=== PATIENT | female | born 1930 | race Caucasian/White ===

== ENCOUNTER → 2018-04-20 | Day surgery (SDC) | payer MEDICARE ==
[2018-04-19 15:25] LABS: BASOPHILS # (AUTO) 0.1 (0.0-0.1); EOSINOPHILS # (AUTO) 0.2 (0.0-0.4); EOSINOPHILS % 2.3 % (0.0-6.0); HEMATOCRIT 32.4 % (34.2-44.1); LYMPHOCYTES # (AUTO) 1.9 (1.0-3.2); LYMPHOCYTES % 27.5 % (18.0-39.1); MEAN CORPUSCULAR HEMOGLOBIN 23.6 pg (28-32); MEAN CORPUSCULAR HGB CONC 30.9 g/dL (31-35); MEAN CORPUSCULAR VOLUME 76.6 fL (81-99); MONOCYTES # (AUTO) 0.8 (0.2-0.8); MONOCYTES % 11.3 % (4.4-11.3); NEUTROPHILS # (AUTO) 3.9 (2.1-6.9); NEUTROPHILS % 57.8 % (38.7-80.0); PLATELET COUNT 231 x10e3/uL (140-360); RED BLOOD COUNT 4.23 x10e6/uL (3.6-5.1); RED CELL DISTRIBUTION WIDTH 16.2 % (11.7-14.4)
[2018-04-19 15:36] LABS: INR 2.05; PROTHROMBIN TIME 21.7 seconds (11.9-14.5)
[2018-04-19 15:46] LABS: ALANINE AMINOTRANSFERASE 12 IU/L (0-55); ALBUMIN 3.5 g/dL (3.5-5.0); ALKALINE PHOSPHATASE 83 IU/L (40-150); ANION GAP 12.7 mmol/L (8-16); BLOOD UREA NITROGEN 11 mg/dL (7-26); BUN/CREATININE RATIO 14 (6-25); CALCIUM 9.6 mg/dL (8.4-10.2); CARBON DIOXIDE 24 mmol/L (22-29); CHLORIDE 99 mmol/L (98-107); CHOL/HDL RATIO 2.1 (3.0-3.6); CHOLESTEROL 126 MD/DL (0-199); CREATININE, SERUM 0.77 mg/dL (0.57-1.11); EST GLOMERULAR FILTRATION RATE > 60 ML/MIN (60-); GLUCOSE 93 mg/dL (74-118); HDL CHOLESTEROL 61 MG/DL (40-60); LDL CHOLESTEROL 49 MG/DL (60-130); POTASSIUM 3.7 mmol/L (3.5-5.1); SODIUM 132 mmol/L (136-145); TRIGLYCERIDES 79 MG/DL (0-149)
[2018-04-20] VITALS (14 sets, daily range): BP systolic 143–196; BP diastolic 60–91
[~2018-04-20] VITALS: Ht 160 cm; Wt 68.0 kg
[~2018-04-20] MED LIST: ATORVASTATIN CA10 MG PO; CLONIDINE HCL 0.1 MG TAB ONE; DIOVAN HCT 1601 EACH PO; FENTANYL CITRATE/PF 100MCG/2 ML INJ ONE; HEPARIN SOD (PORCINE) 1000 UNIT/ML 30ML ONE; HEPARIN SOD/SOD CHLORIDE 2,000 ML ONE; IOPAMIDOL 370 MG/ML 200 ML INFUS..BTL INJ ONE; LIDOCAINE HCL 2% LOCAL 20 ML VIAL ONE; METOPROLOL TART25 MG PO; MIDAZOLAM HCL 2 MG/2 ML VIAL ONE; NITROGLYCERIN/D5W 200 MCG/ML 250 ML ONE; SODIUM CHLORIDE 0.9% 1000ML 1,000 ML ONE; VERAPAMIL HCL 2.5 MG/ML 2 ML VIAL ONE; WARFARIN SODIUM3 MG PO
--- NOTE | 2018-04-20 16:52 | Operative Report ---
DATE OF PROCEDURE: April 20, 2018 INDICATIONS: Coronary artery disease. Severe aortic valve stenosis. PROCEDURES PERFORMED: 1. Left heart catheterization. 2. Selective coronary angiography. COMPLICATIONS: None. RECOMMENDATIONS: Transfemoral aortic valve replacement. Access obtained in the right femoral artery. A 5-Uzbek sheath was placed. Diagnostic coronary angiogram revealed mild disease in the left main, heavily calcified left anterior descending artery mid 60% to 70% stenosis, heavily calcified vessel diagonal proximal 60% to 70%. Circumflex was a dominant vessel obtuse marginal 60% to 70%. Ostial lesion mid left posterior descending artery 50% stenosis. Right coronary artery was nondominant with mid 50% stenosis. Moderate to severe coronary artery disease without any discrete lesion that required intervention. Patient is cleared for transfemoral aortic valve replacement. Right groin sheath removed under manual pressure. Patient discharged home same day. Job#: [id number] WILVER
== END | disposition home or self-care (01) ==
LOC: CATH LAB 13:20
PROVIDERS: ATTEND Internal Medicine Interventional Cardiology
DX: I25.118 Atherosclerotic heart disease of native coronary artery with other forms of angina pectoris (principal); I35.0 Nonrheumatic aortic (valve) stenosis; I48.0 Paroxysmal atrial fibrillation; Z01.812 Encounter for preprocedural laboratory examination; Z79.01 Long term (current) use of anticoagulants; Z86.73 Personal history of transient ischemic attack (TIA), and cerebral infarction without residual deficits
CPT/HCPCS: 36415; 80053; 80061; 85025; 85610; 93458; C1760; C1887; J1644; J2001; J2250; J7030; Q9967; 36140; 77002

== ENCOUNTER → 2018-07-30 | Outpatient (CLI) | payer MEDICARE ==
[~2018-07-30] MED LIST changes: -CLONIDINE HCL 0.1 MG TAB ONE; -FENTANYL CITRATE/PF 100MCG/2 ML INJ ONE; -HEPARIN SOD (PORCINE) 1000 UNIT/ML 30ML ONE; -HEPARIN SOD/SOD CHLORIDE 2,000 ML ONE; -IOPAMIDOL 370 MG/ML 200 ML INFUS..BTL INJ ONE; -LIDOCAINE HCL 2% LOCAL 20 ML VIAL ONE; -MIDAZOLAM HCL 2 MG/2 ML VIAL ONE; -NITROGLYCERIN/D5W 200 MCG/ML 250 ML ONE; -SODIUM CHLORIDE 0.9% 1000ML 1,000 ML ONE; -VERAPAMIL HCL 2.5 MG/ML 2 ML VIAL ONE
--- NOTE | 2018-07-30 16:26 | Diagnostic Imaging Report ---
EXAMINATION: CHEST 2 VIEWS INDICATION: \[id number] \S\[id number] \S\SOB COMPARISON: None FINDINGS: PA and lateral views TUBES and LINES: None. LUNGS: Lungs are well inflated. Bibasilar atelectasis. Bilateral central pulmonary vascular congestion. No lobar consolidations. PLEURA: Small bilateral pleural effusions, right greater than left. HEART AND MEDIASTINUM: Mildly prominent left ventricle. Status post transcutaneous aortic valve replacement. Moderate calcifications of the aortic arch. BONES AND SOFT TISSUES: Degenerative changes of the thoracic spine. Soft tissues are unremarkable. UPPER ABDOMEN: No free air under the diaphragm. IMPRESSION: Bilateral central pulmonary vascular congestion and small bilateral pleural effusions. Signed by: Dr. Ida Lyle M.D. on 07/30/2018 4:23 PM
== END ==
LOC: RAD 15:08
PROVIDERS: ATTEND Internal Medicine Interventional Cardiology
DX: R06.02 Shortness of breath (principal); J18.9 Pneumonia, unspecified organism
CPT/HCPCS: 71046

== ENCOUNTER 2018-08-23 14:02 | Emergency (ER) | payer MEDICARE ==
[~2018-08-23] VITALS: Ht 160 cm; Wt 68.0 kg
[2018-08-23] MEDS ORDERED: DILTIAZEM HCL 5 MG/ML 5 ML VIAL IV STA (14:48)
[2018-08-23] MEDS ORDERED: DILTIAZEM HCL 100 ML IV ONE (15:00)
[2018-08-23] MEDS ORDERED: SODIUM CHLORIDE 0.9% 500ML 500 ML IV ONE (15:00)
--- NOTE | 2018-08-23 15:16 | Diagnostic Imaging Report ---
Examination: Single AP view of the chest. COMPARISON: 07/30/2018 INDICATION: Shortness of breath DISCUSSION: The lungs are well-inflated. No focal consolidation or pneumothorax. Unchanged mild prominence of the central pulmonary vasculature. Decrease in size of persistent trace bilateral pleural effusions. Stable cardiomediastinal contour with aortic valvular prosthesis, tortuosity and atherosclerotic calcification of the thoracic aorta. No acute osseous abnormality. IMPRESSION: Interval improvement in pulmonary venous congestion and now trace bilateral pleural effusions relative to 07/30/2018. Signed by: Dr. Braeden Tinajero M.D. on 08/23/2018 3:13 PM
[2018-08-23] MEDS: DILTIAZEM HCL IV SOLN 125 MG in SODIUM CHLORIDE 0.9% 100 ML IV SCH (15:58)
[2018-08-23 16:05] LABS: BASOPHILS # (AUTO) 0.1 (0.0-0.1); BASOPHILS % 0.9 % (0.0-1.0); EOSINOPHILS # (AUTO) 0.2 (0.0-0.4); EOSINOPHILS % 2.3 % (0.0-6.0); HEMATOCRIT 34.7 % (34.2-44.1); HEMOGLOBIN 10.5 g/dL (12.0-16.0); LYMPHOCYTES # (AUTO) 1.6 (1.0-3.2); MEAN CORPUSCULAR HEMOGLOBIN 24.5 pg (28-32); MEAN CORPUSCULAR HGB CONC 30.3 g/dL (31-35); MEAN CORPUSCULAR VOLUME 80.9 fL (81-99); MONOCYTES # (AUTO) 0.8 (0.2-0.8); MONOCYTES % 12.2 % (4.4-11.3); NEUTROPHILS # (AUTO) 3.9 (2.1-6.9); NEUTROPHILS % 59.3 % (38.7-80.0); PLATELET COUNT 196 x10e3/uL (140-360); RED BLOOD COUNT 4.29 x10e6/uL (3.6-5.1)
[2018-08-23 16:31] LABS: ALANINE AMINOTRANSFERASE 9 IU/L (0-55); ALBUMIN 3.2 g/dL (3.5-5.0); ALBUMIN/GLOBULIN RATIO 0.9 (0.8-2.0); ALKALINE PHOSPHATASE 86 IU/L (40-150); BLOOD UREA NITROGEN 13 mg/dL (7-26); BUN/CREATININE RATIO 16 (6-25); CALCIUM 9.4 mg/dL (8.4-10.2); CREATININE, SERUM 0.82 mg/dL (0.57-1.11); EST GLOMERULAR FILTRATION RATE > 60 ML/MIN (60-); GLUCOSE 99 mg/dL (74-118); MAGNESIUM 1.4 MG/DL (1.3-2.1)
[2018-08-23 16:43] LABS: CHLORIDE 105 mmol/L (98-107); POTASSIUM 3.5 mmol/L (3.5-5.1); SODIUM 141 mmol/L (136-145)
[2018-08-23] MEDS ORDERED: ONDANSETRON HCL INJ 2 MG/ML VIAL IV PRN (17:15)
[2018-08-23] MEDS ORDERED: SODIUM CHLORIDE FLUSH 10 ML SYR INJ PRN (17:15)
[2018-08-23 17:50] LABS: ANION GAP 15.5 mmol/L (8-16); CARBON DIOXIDE 24 mmol/L (22-29); THYROID STIMULATING HORMONE 0.347 uIU/mL (0.350-4.940)
[2018-08-23] MEDS ORDERED: FUROSEMIDE40 MG PO (17:59)
[2018-08-23] MEDS ORDERED: ASPIR 8181 MG PO (17:59)
[2018-08-23] MEDS ORDERED: POTASSIUM CHLO10 ME1 PO (17:59)
[2018-08-24] VITALS (10 sets, daily range): BP systolic 118–137; BP diastolic 61–94
[2018-08-24] MEDS: DILTIAZEM HCL 180 MG CAP ER PO SCH ×2 (01:23→10:14)
[2018-08-24 01:47] LABS: BASOPHILS # (AUTO) 0.1 (0.0-0.1); BASOPHILS % 0.9 % (0.0-1.0); EOSINOPHILS # (AUTO) 0.1 (0.0-0.4); EOSINOPHILS % 1.7 % (0.0-6.0); HEMATOCRIT 35.5 % (34.2-44.1); HEMOGLOBIN 10.7 g/dL (12.0-16.0); LYMPHOCYTES # (AUTO) 1.6 (1.0-3.2); MEAN CORPUSCULAR HEMOGLOBIN 24.8 pg (28-32); MEAN CORPUSCULAR HGB CONC 30.1 g/dL (31-35); MEAN CORPUSCULAR VOLUME 82.2 fL (81-99); MONOCYTES # (AUTO) 0.8 (0.2-0.8); MONOCYTES % 9.8 % (4.4-11.3); NEUTROPHILS # (AUTO) 5.6 (2.1-6.9); NEUTROPHILS % 68.4 % (38.7-80.0); PLATELET COUNT 207 x10e3/uL (140-360); RED BLOOD COUNT 4.32 x10e6/uL (3.6-5.1); RED CELL DISTRIBUTION WIDTH 15.9 % (11.7-14.4)
[2018-08-24 02:44] LABS: INR 2.08
[2018-08-24 02:45] LABS: PARTIAL THROMBOPLASTIN TIME 50.9 seconds (23.8-35.5)
[2018-08-24 03:45] LABS: ALANINE AMINOTRANSFERASE 10 IU/L (0-55); ALBUMIN 3.4 g/dL (3.5-5.0); ALBUMIN/GLOBULIN RATIO 0.9 (0.8-2.0); ALKALINE PHOSPHATASE 83 IU/L (40-150); BLOOD UREA NITROGEN 12 mg/dL (7-26); BUN/CREATININE RATIO 15 (6-25); CALCIUM 10.2 mg/dL (8.4-10.2); CHLORIDE 104 mmol/L (98-107); CHOL/HDL RATIO 2.2 (3.0-3.6); CHOLESTEROL 109 MD/DL (0-199); CREATININE, SERUM 0.82 mg/dL (0.57-1.11); EST GLOMERULAR FILTRATION RATE > 60 ML/MIN (60-); GLUCOSE 106 mg/dL (74-118); HDL CHOLESTEROL 49 MG/DL (40-60); LDL CHOLESTEROL 45 MG/DL (60-130); MAGNESIUM 1.8 MG/DL (1.3-2.1); PHOSPHORUS 2.7 MG/DL (2.3-4.7); POTASSIUM 3.5 mmol/L (3.5-5.1); SODIUM 139 mmol/L (136-145); TRIGLYCERIDES 77 MG/DL (0-149)
[2018-08-24 04:12] LABS: ANION GAP 10.5 mmol/L (8-16); CARBON DIOXIDE 28 mmol/L (22-32)
[2018-08-24 07:07] LABS: FREE THYROXINE INDEX 2.7479 (1.4-3.8); THYROID STIMULATING HORMONE 0.374 uIU/mL (0.350-4.940)
[2018-08-24] MEDS ORDERED: POTASSIUM CHLORIDE 10MEQ EA PO SCH (09:00)
[2018-08-24] MEDS ORDERED: METOPROLOL TARTRATE 25 MG TAB PO SCH (09:00)
[2018-08-24] MEDS ORDERED: ASPIRIN 81 MG CHEW TAB PO SCH (09:00)
[2018-08-24] MEDS ORDERED: FUROSEMIDE 40 MG TAB PO SCH (09:00)
[2018-08-24] MEDS: DILTIAZEM HCL IV SOLN 125 MG in SODIUM CHLORIDE 0.9% 100 ML IV SCH ×4 (09:20→11:30)
[2018-08-24] MEDS ORDERED: HALOPERIDOL LACTATE 5 MG/ML VIAL IV ONE (12:30)
--- NOTE | 2018-08-24 12:59 | Consultation ---
DATE OF CONSULTATION: August 24, 2018 CARDIOLOGY CONSULTATION REQUESTING PHYSICIAN: Dr. Hernandez REASON FOR CONSULTATION: Atrial fibrillation with rapid ventricular response. HISTORY OF PRESENT ILLNESS: This is an 88-year-old woman with a history of paroxysmal atrial fibrillation on warfarin therapy, severe aortic stenosis status post TAVR earlier this year, moderate coronary artery disease on cardiac catheterization, hypertension, hyperlipidemia, and prior CVA who presents with lightheadedness, dizziness and weakness. The patient was seen by home health yesterday. After noticing she was tachycardic to 148 beats per minute, she was instructed to present to [facility] for further evaluation. The patient endorses dizziness and weakness for approximately the last week but, otherwise, denies any chest pain, shortness of breath, palpitations, edema, orthopnea or PND. REVIEW OF SYSTEMS: Negative, except as per HPI. PAST MEDICAL HISTORY 1. Atrial fibrillation on Coumadin therapy. 2. Severe aortic stenosis status post TAVR earlier this year. 3. Moderate coronary artery disease on cardiac catheterization. 4. Hypertension. 5. Hyperlipidemia. 6. History of CVA. ALLERGIES: NO KNOWN DRUG ALLERGIES. MEDICATIONS: Please see EMR. SOCIAL HISTORY: No tobacco or alcohol. FAMILY HISTORY: Noncontributory to the current illness. PHYSICAL EXAMINATION VITAL SIGNS: Temperature 96.2 degrees, pulse 86, respiratory rate 18, blood pressure 134/70, oxygen saturation 97% on room air. GENERAL: Elderly woman in no acute distress. HEENT: Normocephalic and atraumatic. Pupils are equal. No scleral icterus. NECK: Supple. No thyromegaly or cervical lymphadenopathy. No carotid bruit. LUNGS: Clear to auscultation bilaterally. No wheezes or crackles. CARDIOVASCULAR: Irregularly irregular. Normal rate. Normal S1 and S2. ABDOMEN: Soft. Nontender. EXTREMITIES: No edema. NEURO: Nonfocal exam. LABS: INR 2.08. Sodium 139, potassium 3.5, chloride 104, CO2 28, BUN 12, creatinine 0.82. TSH 0.347. WBC 8.14, hemoglobin 10.7, hematocrit 35.5, platelets 207. Chest x-ray: Interval improvement in pulmonary venous congestion and now trace bilateral pleural effusions relative to 07/30/2018. EKG: Atrial fibrillation with rapid ventricular response, cannot rule out anterior infarct age undetermined. IMPRESSION 1. Atrial fibrillation with rapid ventricular response. 2. Severe aortic stenosis status post transcatheter aortic valve replacement. 3. Moderate coronary artery disease on cardiac catheterization. 4. Hypertension. 5. Hyperlipidemia. 6. History of cerebrovascular accident. RECOMMENDATIONS: Continue the patient on diltiazem drip. Wean as heart rate permits. We will resume the patient's home metoprolol and titrate up. Continue home cardiac medications otherwise. The patient's heart rate has been poorly controlled. She was recommended for AV node ablation with bi-V pacemaker implantation. Plan to transfer the patient to [facility] for this procedure given her poorly controlled symptomatic AFib. Thank you for this consult. We will continue to follow. Job#: [id number]
[2018-08-24] MEDS ORDERED: WARFARIN SOD 3 MG TAB PO SCH (17:00)
[2018-08-24] MEDS ORDERED: ATORVASTATIN 10 MG TAB PO SCH (21:00)
[2018-08-24] MEDS ORDERED: IPRATROPIUM BROMIDE 0.02% 2.5 ML NEB ONE (23:03)
[2018-08-24] MEDS ORDERED: ALBUTEROL SULF 0.083% NEB SOLN 3 ML NEB ONE (23:03)
--- OUTSIDE RECORDS SUMMARY | 2018-08-31 12:06 | XMS REPORT ---
Author Author [facility] Address Unknown Phone Unavailable Care Team Providers Care Auditing Coder Name Role Phone Vianey RICK Unavailable Unavailable NIALL FELIX Unavailable Unavailable Problems This patient has no known problems. Allergies, Adverse Reactions, Alerts This patient has no known allergies or adverse reactions. Medications This patient has no known medications. Results Test Description Test Time Test Comments Text Results Atomic Results Result Comments CHEST SINGLE (PORTABLE) 2018-08-23 15:10:00 [facility] [address] [place] [address] Patient Name: JEAN MONTALVO MR #: [id number] : 1930 Age/Sex: 88/F Req #: [id number] Adm Physician: Ordered by: CHRISTA RICK MD Report #: [id number] Location: ER Room/Bed: Procedure: [id number] DX/CHEST SINGLE (PORTABLE) Exam Date: 08/23/18 Exam Time: 1455 REPORT STATUS: Signed Examination: Single AP view of the chest. COMPARISON: 07/30/2018 INDICATION: Shortness of breath DISCUSSION: The lungs are well-inflated. No focal consolidation or pneumothorax. Unchanged mild prominence of the central pulmonary vasculature. Decrease in size of persistent trace bilateral pleural effusions. Stable cardiomediastinal contour with aortic valvular prosthesis, tortuosity and atherosclerotic calcification of the thoracic aorta. No acute osseous abnormality. IMPRESSION: Interval improvement in pulmonary venous congestion and now trace bilateral pleural effusions relative to 07/30/2018. Signed by: Dr. Sravanthi Juárez M.D. on 08/23/2018 3:13 PM Dictated By: SRAVANTHI JUÁREZ MD 12 Transcribed By: MARCOS on 08/23/181512 COPY TO: CHRISTA RICK MD CHEST 2 VIEWS 2018-07-30 16:20:00 [place] [id number] Patient Name: JEAN MONTALVO MR #: [id number] : 1930 Age/Sex: 88/F Req #: [id number] Adm Physician: Ordered by: NIALL FELIX MD Report #: [id number] Location: [facility] Room/Bed: Procedure: [id number] DX/CHEST 2 VIEWS Exam Date: 07/30/18 Exam Time: 1605 REPORT STATUS: Signed EXAMINATION: CHEST 2 VIEWS INDICATION: COMPARISON: None FINDINGS: PA and lateral views TUBES and LINES: None. LUNGS: Lungs are well inflated. Bibasilar atelectasis. Bilateral central pulmonary vascular congestion. No lobar consolidations. PLEURA: Small bilateral pleural effusions, right greater than left. HEART AND MEDIASTINUM: Mildly prominent left ventricle. Status post transcutaneous aortic valve replacement. Moderate calcifications of the aortic arch. BONES AND SOFT TISSUES: Degenerative changes of the thoracic spine. Soft tissues are unremarkable. UPPER ABDOMEN: No free air under the diaphragm. IMPRESSION: Bilateral central pulmonary vascular congestion and small bilateral pleural effusions. Signed by: Dr. Keyana Bazzi M.D. on 07/30/2018 4:23 PM Dictated By: KEYANA BAZZI MD 1625 Transcribed By: MARCOS on 07/30/18 1623 COPY TO: NIALL FELIX MD
--- OUTSIDE RECORDS SUMMARY | 2018-08-31 12:06 | XMS REPORT | Continuity of Care Document ---
Author Author [facility] Interface Address Unknown Phone Unavailable Problems Problem Status Onset Date Classification Date Reported Comments Source AFIB Active 08/24/2018 [facility] 4 WEEK F/U Active 07/21/2018 [facility] FOLLOW UP Active 07/12/2018 [facility] PREADMIT / TAVR / MAC / TTE Active 07/08/2018 [facility] CTA CHEST ABD PELVIS CT HEART W CON Active 06/14/2018 [facility] HEART VALVE SURGERY Active 11/16/2017 [facility] Aortic stenosis Active Problem 06/11/2018 [facility] CVA (<span ID="[id number]">Confirmed</span>) Active Problem 06/11/2018 [facility] Hypertension Active Problem 06/11/2018 [facility] Paroxysmal atrial fibrillation Active Problem 06/11/2018 [facility] NONRHEUMATIC AORTIC (VALVE) STENOSIS Active [facility] SHORTNESS OF BREATH Active [facility] ENCNTR FOR GENERAL ADULT MEDICAL EXAM W/ Active [facility] PAROXYSMAL ATRIAL FIBRILLATION Active [facility] Medications Medication Details Route Status Patient Instructions Ordering Provider Order Date Source warfarin 3 mg oral tablet 3 mg=1 tab, PO, Daily, # 90 tab, 0 Refill(s) Active 06/08/2018 [facility] atorvastatin 10 mg oral tablet 10 mg=1 tab, PO, Bedtime, # 90 tab, 3 Refill(s) Active 06/08/2018 [facility] Hydrochlorothiazide 12.5 MG / valsartan 160 MG Oral Tablet 1 tab, PO, Daily, # 90 tab, 1 Refill(s) Active 06/08/2018 [facility] metoprolol tartrate 25 mg oral tablet 12.5 mg=0.5 tab, PO, BID, # 60 tab, 0 Refill(s) Active 06/08/2018 [facility] Allergies, Adverse Reactions, Alerts Substance Category Reaction Severity Reaction type Status Date Reported Comments Source Immunizations Immunization Date Given Site Status Last Updated Comments Source Results Order Name Results Value Reference Range Date Interpretation Comments Source Abdomen/Pelvis CTA Abdomen/Pelvis CTA Patient Name: JEAN MONTALVO : 1930 Age: 88 years, Female MR: [id number] Study: Abdomen/Pelvis CTA 08/30/2018 6:17 PM CDT Examination: CTA abdomen and pelvis WITH contrast. Bilateral lower extremity runoff. Indication: Right groin hematoma. Clinical information: - Right groin Hematoma. Comparison: CTA chest abdomen pelvis 07/01/2018 TECHNIQUE: Sequential trans-axial images were obtained with a multi-detector helical CT after administration of iodinated contrast for CT angiography. The images were obtained precontrast and in the arterial phase. Coronal and sagittal reconstructions and were obtained, along with 3D post-processing and maximum intensity projection imaging for exam interpretation. IV contrast: 75 cc of Omnipaque Complications: None Radiation dose: Total exam DLP: 2700.1 mGy-cm CT imaging performed at this location utilizes radiation dose optimization techniques which include one or more of the following: -Automated exposure control -Adjustment of the mA and/or kV according to patient size -Use of iterative reconstruction technique FINDINGS: CTA ABDOMEN: ARTERIAL EVALUATION The abdominal aorta is normal. No aneurysmal dilation is present. No flow-limiting stenosis is present. Scattered nonflow-limiting atherosclerotic calcifications are noted. Bilateral renal arteries are widely patent including the intrarenal arterial branches. There is no CT evidence of renal artery stenosis. The celiac artery, superior mesenteric artery and inferior mesenteric artery origins are widely patent. LIMITED VENOUS EVALUATION: The mesenteric veins and portal vein are patent. The inferior vena cava and renal veins are unremarkable. CTA PELVIS: ARTERIAL EVALUATION: The distal infrarenal abdominal aorta and bifurcation are patent. No aneurysmal dilation is present. No flow-limiting stenosis is present. Scattered nonflow-limiting atherosclerotic calcifications are noted. The right common iliac, external iliac, and internal iliac arteries are patent. The left common iliac, external iliac, and internal iliac arteries are patent. The right common femoral, superficial femoral, profunda arteries are patent. Multiple surgical clips are present in the right groin. Partially visualized drainage catheter is present in the medial aspect of the right groin, series 5 image 183. No focal drainable fluid collection. Several adjacent foci of air and inflammatory changes within the right groin are noted. The left common femoral artery is patent. The visualized portions of the superficial femoral and profunda arteries are patent. GENERAL Lines/tubes: Partially visualized cardiac pacing leads are present in the right atrium and ventricle. Lower thorax: Metallic prosthesis is present in the region of the aortic valve. Coronary artery stents are present. Bilateral lower lobe compression atelectasis. Bilateral pleural effusions, right greater than left. No pneumothorax. Liver: Normal parenchyma. No focal mass. No hepatomegaly. The hepatic and portal veins are patent. Gallbladder: Multiple large gallstones are present in the gallbladder. Minimal distention of the gallbladder. Biliary tree: No intrahepatic duct dilation. No extrahepatic duct dilation. Spleen: No focal mass. No splenomegaly. Pancreas: Normal parenchymal enhancement. No focal mass. Normal pancreatic duct. No peripancreatic inflammatory changes. Kidneys: No obstructing calculi. No hydronephrosis. No solid enhancing mass. No cysts. No perinephric soft tissue inflammatory changes. The right renal pelvis is slightly extrarenal and prominent, unchanged since the previous examination, series 5 image 65. Adrenal glands: No adrenal nodules. Bladder: Normal urinary bladder. Cuadra catheter is present in the urinary bladder. Reproductive organs: 3.8 cm exophytic density with coarse calcifications adjacent to the uterus, series 5 image 134, likely represents a uterine fibroid. The uterus is otherwise normal. Normal ovaries. GI: No bowel wall thickening. No air-fluid levels. The stomach and small bowel are normal. Multiple diverticuli are present in the descending and sigmoid colon, without adjacent soft tissue inflammatory changes. The appendix is normal. A moderate amount of retained feces limits intraluminal evaluation of the colon. Peritoneum/retroperitoneum: No pneumoperitoneum. No ascites. No drainable fluid collection. The fascia of the abdominal wall is intact. Lymph nodes: No lymphadenopathy. Soft tissues: No focal abnormality. Bones: No acute osseous abnormality. Degenerative changes of the lumbar spine. IMPRESSION: 1. No hematoma is visualized in the right groin. A drainage catheter with minimal adjacent soft tissue inflammatory changes are present. No drainable fluid collection. 2. No acute arterial abnormality. 3. Cholelithiasis with minimally distended gallbladder. 4. Bilateral pleural effusions, right greater than left. 5. Exophytic uterine fibroid. SL: [id number] 08/30/2018 - - Read by: Gordo Casillas MD Dictated Date/time: 08/31/18 09:41 Electronically Signed by: Gordo Casillas MD 08/31/18 10:03 FINAL REPORT [facility] Chest 1 v for Placement DX Chest 1 v for Placement DX Clinical indication: Line Placement - Status post PPM/ICD Implantation Comparison: Chest 1 view 08/25/2018 TECHNIQUE: AP chest FINDINGS: Lines, tubes and hardware: There has been placement of a left subclavian approach single lead pacemaker with a right ventricular lead. An aortic valve replacement is present. A curvilinear wire fragment overlies the left neck. Lungs and pleura: Right perihilar and bilateral suprahilar airspace opacities are seen, mildly increased from the prior exam. No definite pleural effusion or pneumothorax. Heart and mediastinum: The cardiomediastinal silhouette is stable with a tortuous thoracic aorta demonstrating atherosclerotic calcification. Bones: No acute bony abnormality is identified. A healed right clavicle fracture is present. IMPRESSION: 1. A curvilinear wire fragment overlies the left neck. Please confirm that this opacity is external to the patient. Follow-up chest radiograph may be obtained if clinically indicated. 2. Interval placement of a left subclavian approach pacemaker with a right ventricular lead. 3. Bilateral perihilar and suprahilar airspace opacities, which could represent pulmonary edema, not significantly changed from prior. FABIO: KAY 08/30/2018 - - Read by: Meg Redding MD Dictated Date/time: 08/30/18 17:52 Electronically Signed by: Meg Redding MD 08/30/18 17:56 FINAL REPORT [facility] 1view DX Chest 1view DX Clinical Indication: - shortness of breath; Comparison: 07/09/2018 FINDINGS: AP chest radiographs shows normal lung volumes without interstitial or airspace opacities, pleural effusions or pneumothorax. The heart is mildly enlarged. The aorta is tortuous and atherosclerotic. There is mild pulmonary vascular congestion which has slightly worsened. The trachea is midline. There are no clinically significant osseous abnormalities noted. IMPRESSION: 1. Cardiomegaly with mild pulmonary vascular congestion . SL: MICHAEL 08/25/2018 - - Read by: Braden Ceballos MD Dictated Date/time: 08/25/18 18:50 Electronically Signed by: Braden Ceballos MD 08/25/18 18:51 FINAL REPORT [facility] 1view DX Chest 1view DX EXAM: XR CHEST 1 VIEW DATE: 07/09/2018 10:00 AM CDT INDICATION: Arrhythmias - Post HARJIT COMPARISON: 03/03/2018 at 4:38 PM. TECHNIQUE: AP chest. IMPRESSION: 1. Stable postsurgical changes following TAVR. 2. Stable enlarged cardiomediastinal silhouette. Atherosclerotic changes in the aorta. 3. Lung volumes remain low. Bilateral lower lung opacities are likely subsegmental atelectasis, though superimposed infection cannot be excluded. 4. Redemonstration of interstitial pulmonary edema, without unchanged from prior study. 07/09/2018 - - Read by: Liana Choudhury MD Dictated Date/time: 07/09/18 17:44 Electronically Signed by: Liana Choudhury MD 07/09/18 17:45 FINAL REPORT [facility] Chest/Abd/Pelvis TAVR CTA Chest/Abd/Pelvis TAVR CTA EXAM: CTA CHEST EXAM: CTA ABDOMEN AND PELVIS INDICATION: 88 years old Female with aortic stenosis. TECHNIQUE: Following the administration of intravenous contrast, 3 mm slices from the thoracic inlet through the pubic symphysis were obtained in arterial phase. Images are reviewed on 3D workstation. COMPARISON: None FINDINGS: Vascular Measurements: Ascending aorta: 33 mm x 32 mm Aortic arch: 25 mm x 25 mm Mid-descending thoracic aorta: 21 mm x 21 mm Aorta at diaphragm: 20 mm x 20 mm Aorta at celiac axis: 21 mm x 20 mm Aorta at superior mesenteric artery: 19 mm x 19 mm Mid-infrarenal aorta: 15 mm x 14 mm Right common iliac artery: 10 mm x 10 mm Right external iliac artery: 6 mm x 6 mm Right common femoral artery: 8 mm x 9 mm Left common iliac artery: 10 mm x 10 mm Left external iliac artery: 7 mm x 6 mm Left common femoral artery: 8 mm x 8 mm Calcific scores: Ascending aorta: 1 Aortic arch: 2 Descending thoracic aorta: 2 Aorta at diaphragm: 2 Suprarenal abdominal aorta: 3 Infrarenal abdominal aorta: 3 0 :none 1 :punctate calcifications 2 : <50% of vessel circumference is confluent calcification 3 : >50% of vessel circumference is confluent calcification Cardiovascular: The pulmonary arteries are well seen through the segmental level. No pulmonary thromboemboli are identified. Mild cardiomegaly. No pericardial effusion. Triple-vessel coronary present. Aortic stenosis is also noted. Lymph Nodes: No adenopathy by CT size criteria. Mediastinum: A large thyroid goiter is present with multiple hypodense nodules seen within the bilateral lobes. There is retrosternal extension of the thyroid gland. Lungs demonstrate diffuse groundglass opacities, nonspecific, could represent pulmonary edema in the right clinical setting. A small right pleural effusion is present. The liver, spleen, adrenals and pancreas are normal. An extrarenal pelvis is present within the right kidney. Kidneys are otherwise unremarkable. Calcified gallstones are noted within the neck of the gallbladder. There is no gallbladder wall thickening or pericolonic fat stranding to suggest acute cholecystitis. Evaluation of the stomach, small bowel, and colon are limited by lack of PO contrast. A small hiatal hernia is present. Diverticulosis is present throughout the rectosigmoid colon. A partially enhancing uterine fibroid is seen at the fundus of the uterus. Multilevel compression deformities are seen throughout the thoracolumbar spine. These are age-indeterminate. Please correlate with focal tenderness. IMPRESSION: 1. Refer to dedicated CT cardiac for cardiac findings. 2. No pulmonary thromboemboli identified. 3. Mild cardiomegaly. 4. Pulmonary edema. 5. Small right pleural effusion. 6. Triple-vessel coronary artery disease. 7. Small hiatal hernia. 8. Cholelithiasis without CT evidence of acute cholecystitis. 9. Diverticulosis without CT evidence of diverticulitis. 10. Partially enhancing uterine fibroid. 11. Goitrous thyroid with retrosternal extension. Recommend nonemergent thyroid ultrasound for further evaluation. I have reviewed these images and agree with the above findings. 07/01/2018 - - This report was dictated by a Logistics Management Specialist/Fellow. I have personally reviewed the images as well as the Resident's interpretation and agree with the findings. Read by: Cristofer Lopez MD Resident: Cristofer Lopez MD Dictated Date/time: 07/02/18 13:28 Electronically Signed by: Gene Rivera MD 07/02/18 15:16 FINAL REPORT [facility] Heart/coronary art TAVR CTA Heart/coronary art TAVR CTA EXAM: CTA HEART WITH CONTRAST DATE: 07/01/2018 8:19 AM CDT INDICATION: - Aortic Stenosis. TAVR candidate. COMPARISON: CTA of the same day TECHNIQUE: Contrast imaging was performed on a [employer] Aquilion [address] scanner utilizing a single breath hold, at 570 mA and 120 kVp. Retrospective ECG gating was performed, at a heart rate of 71-75 bpm. Images were reformatted at 0.5 mm intervals and sent to the [employer] workstation for interpretation of both systolic and diastolic phases. IV contrast: 65 mL of Omnipaque 350 contrast was delivered intravenously at 5 mL/sec followed by a 50 mL normal saline bolus chaser. DLP: 1707.4 mGy-cm STUDY QUALITY: Good FINDINGS: Aortic root landmarks (dimensions determined in systolic phases) Aortic valve: Trileaflet: asymmetricallycalcified; bulky leaflet: No; right/left/noncoronary Aortic annulus: 22 x 18 mm; average 20 mm; area 3.1 sq cm; circumference 63 mm Sino-tubular junction: 26 x 25 mm; average 25 mm Ao annulus to coronary height: left main: 14 mm; right: 15 mm Ao annulus to STJ length: 21 mm Sinuses of Valsalva: width 27 mm Ascending aorta width at 40 mm from annulus: 33 mm Descending thoracic aorta: width: 22 mm Coplanar TAVR angle: TURKISH 11 and CAUDAL 4 Coronary Arteries: This patient has a right dominant system, with normal origins of the coronary arteries. There are diffuse calcifications of the left anterior descending, right circumflex and left coronary arteries, which may be correlated with cardiac angiography. Basal septal hypertrophy: Yes Severe hypertrophy (1.5 cm wall thickness): Yes; 1.8 cm Intracardiac masses: No Other cardiac findings: Pacemaker: No Artificial valve: No; Location: N/A Intracardiac closure device: None Mild thinning out of the left ventricular apical segments showing some paradoxical motion with left ventricular contraction suggestive of small left apical aneurysm. Left ventricular function: Left ventricular ejection fraction: 74% Left ventricular end-diastolic volume: 92 cc Left ventricular end-systolic volume: 24 cc Left ventricular stroke volume: 68 cc Other noncardiac findings: Moderate hiatal hernia and calcified cholelithiasis can be further evaluated on the CTA of the chest, abdomen and pelvis. IMPRESSION: 1. Trileaflet symmetrically calcified aortic valve and with aortic annular measurements as described above. 2. Moderate to severe calcifications are seen along the 3 coronary arteries. The current study is not tailored for evaluation of coronary arteries. Please correlate with coronary catheter for further evaluation. 3. 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 4. Normal left ventricular function with left ventricular ejection fraction of 74%. 5. Moderate size hiatal hernia. Cholelithiasis. 07/01/2018 - - This report was dictated by a Logistics Management Specialist/Fellow. I have personally reviewed the images as well as the Resident's interpretation and agree with the findings. Read by: Adonis Nance MD Resident: Adonis Nance MD Dictated Date/time: 07/01/18 15:24 Electronically Signed by: Damaso Massey MD 07/04/18 21:19 FINAL REPORT [facility] CHEM PANEL eGFR 74 mL/min/1.73m2 06/08/2018 Result Comment: The eGFR is calculated using the CKD-EPI formula. In most young, healthy individuals the eGFR will be >90 mL/min/1.73m2. The eGFR declines with age. An eGFR of 60-89 may be normal in some populations, particularly the elderly, for whom the CKD-EPI formula has not been extensively validated. Use of the eGFR is not recommended in the following populations: Individuals with unstable creatinine concentrations, including patients and those with serious co-morbid conditions. Patients with extremes in muscle mass or diet. The data above are obtained from the National Kidney Disease Education Program (NKDEP) which additionally recommends that when the eGFR is used in patients with extremes of body mass index for purposes of drug dosing, the eGFR should be multiplied by the estimated BMI. [facility] CHEM PANEL Total Protein 7.2 g/dL 6.4 - 8.4 06/08/2018 [facility] CHEM PANEL CO2 27 meq/L 24 - 32 06/08/2018 [facility] CHEM PANEL Calcium Lvl 9.4 mg/dL 8.5 - 10.5 06/08/2018 [facility] CHEM PANEL Alk Phos 80 unit/L 39 - 136 06/08/2018 [facility] CHEM PANEL Bili Total 0.7 mg/dL 0.2 - 1.3 06/08/2018 [facility] CHEM PANEL BUN 10 mg/dL 7 - 06/08/2018 [facility] CHEM PANEL Creatinine Lvl 0.73 mg/dL 0.50 - 1.40 06/08/2018 [facility] CHEM PANEL Sodium Lvl 136 meq/L 135 - 145 06/08/2018 [facility] CHEM PANEL Potassium Lvl 4.7 meq/L 3.5 - 5.1 06/08/2018 [facility] CHEM PANEL Chloride Lvl 100 meq/L 95 - 109 06/08/2018 [facility] CHEM PANEL Glucose Lvl 101 mg/dL 70 - 99 06/08/2018 [facility] CHEM PANEL Albumin Lvl 3.7 g/dL 3.5 - 5.0 06/08/2018 [facility] CHEM PANEL ALT 21 unit/L 0 - 65 06/08/2018 [facility] CHEM PANEL AST 20 unit/L 0 - 37 06/08/2018 [facility] CHEM PANEL A/G Ratio 1.1 0.7 - 1.6 06/08/2018 [facility] CHEM PANEL B/C Ratio 14 6 - 25 06/08/2018 [facility] CHEM PANEL Globulin 3.5 g/dL 2.7 - 4.2 06/08/2018 [facility] CHEM PANEL AGAP 13.7 meq/L 10.0 - 20.0 06/08/2018 [facility] HEMATOLOGY MCH 24.1 pg 27.0 - 31.0 06/08/2018 [facility] HEMATOLOGY RDW 17.4 % 11.5 - 14.5 06/08/2018 [facility] HEMATOLOGY MCHC 31.9 g/dL 32.0 - 36.0 06/08/2018 [facility] HEMATOLOGY Hct 34.9 % 36.0 - 48.0 06/08/2018 [facility] HEMATOLOGY MCV 75.6 fL 80.0 - 98.0 06/08/2018 [facility] HEMATOLOGY RBC 4.61 M/CMM 4.20 - 5.40 06/08/2018 [facility] HEMATOLOGY Hgb 11.1 g/dL 12.0 - 16.0 06/08/2018 [facility] HEMATOLOGY MPV 8.8 fL 7.4 - 10.4 06/08/2018 [facility] HEMATOLOGY Platelet 227 K/CMM 133 - 450 06/08/2018 [facility] HEMATOLOGY WBC 6.9 K/CMM 3.7 - 10.4 06/08/2018 [facility] HEMATOLOGY Segs 67.8 % 45.0 - 75.0 06/08/2018 [facility] HEMATOLOGY Monocytes 8.3 % 2.0 - 12.0 06/08/2018 [facility] HEMATOLOGY Eosinophils 1.4 % 0.0 - 4.0 06/08/2018 [facility] HEMATOLOGY Lymphocytes 21.5 % 20.0 - 40.0 06/08/2018 [facility] HEMATOLOGY Basophils 1.0 % 0.0 - 1.0 06/08/2018 [facility] HEMATOLOGY Lymphocytes # 1.5 K/CMM 1.0 - 5.5 06/08/2018 [facility] HEMATOLOGY Segs-Bands # 4.7 K/CMM 1.5 - 8.1 06/08/2018 [facility] HEMATOLOGY Eosinophils # 0.1 K/CMM 0.0 - 0.5 06/08/2018 [facility] HEMATOLOGY Microcyte 1+ *ABN* (06/08/18 11:29 AM) None Seen 06/08/2018 [facility] HEMATOLOGY Monocytes # 0.6 K/CMM 0.0 - 0.8 06/08/2018 [facility] HEMATOLOGY Basophils # 0.1 K/CMM 0.0 - 0.2 06/08/2018 [facility] Vital Signs Vital Sign Value Date Comments Source BMI Calculated 29.11 06/08/2018 [facility] Height 156.72 cm 06/08/2018 [facility] Weight 71.506 06/08/2018 [facility] Respitory Rate 18 06/08/2018 [facility] Temperature Oral (F) 97.3 F 06/08/2018 [facility] Heart Rate 82 06/08/2018 [facility] Systolic (mm Hg) 152 06/08/2018 [facility] Diastolic (mm Hg) 73 06/08/2018 [facility] Encounters Location Location Details Encounter Type Encounter Number Reason For Visit Attending Provider ADM Date DC Date Status Source [facility] [place] for Advanced Heart Failure Outpatient [id number] Diego Prescott 06/08/2018 06/09/2018 [facility] Procedures Procedure Code Date Perfomer Comments Source
--- OUTSIDE RECORDS SUMMARY | 2018-08-31 12:06 | XMS REPORT | Summary of Care ---
Author Author [facility] Organization [facility] Address Unknown Phone Unavailable Encounter DIOGENES Ford(NEGRITO) [phone] Date(s): 06/08/18 - 06/08/18 [facility] [address], [address] Discharge Disposition: Home or Self Care Attending Physician: Diego Prescott MD Referring Physician: Diego Prescott MD Vital Signs Most recent to 1 oldest [Reference Range]: Height 156.72 cm (06/08/18 8:37 AM) Temperature Oral 97.3 DegF [96.4-99.1 DegF] (06/08/18 8:37 AM) Blood Pressure 152/73 mmHg [90-140/60-90 mmHg] *HI* (06/08/18 8:37 AM) Respiratory Rate 18 BRMIN [14-20 BRMIN] (06/08/18 8:37 AM) Peripheral Pulse 82 bpm Rate [60-100 bpm] (06/08/18 8:37 AM) Weight 71.506 kg (06/08/18 8:37 AM) Body Mass Index 29.11 m2 (06/08/18 8:37 AM) Problem List Condition Effective Dates Status Health Status Informant Aortic Active stenosis(Confirmed) CVA (cerebral Active vascular accident)(Confirmed) Hypertension(Confirm Active ed) Paroxysmal atrial Active fibrillation(Confirm ed) Allergies, Adverse Reactions, Alerts No data available for this section Medications atorvastatin 10 mg oral tablet 10 mg=1 tab, PO, Bedtime, # 90 tab, 3 Refill(s) Start Date: 06/08/18 Status: Ordered hydrochlorothiazide-valsartan 12.5 mg-160 mg oral tablet 1 tab, PO, Daily, # 90 tab, 1 Refill(s) Start Date: 06/08/18 Status: Ordered metoprolol tartrate 25 mg oral tablet 12.5 mg=0.5 tab, PO, BID, # 60 tab, 0 Refill(s) Start Date: 06/08/18 Status: Ordered warfarin 3 mg oral tablet 3 mg=1 tab, PO, Daily, # 90 tab, 0 Refill(s) Start Date: 06/08/18 Status: Ordered Results ELECTROLYTES Most recent to 1 oldest [Reference Range]: Sodium Lvl [135-145 136 mEq/L mEq/L] (06/08/18 11:29 AM) Potassium Lvl 4.7 mEq/L [3.5-5.1 mEq/L] (06/08/18 11:29 AM) Chloride Lvl [95-109 100 mEq/L mEq/L] (06/08/18 11:29 AM) CO2 [24-32 mEq/L] 27 mEq/L (06/08/18 11:29 AM) AGAP [10.0-20.0 13.7 mEq/L mEq/L] (06/08/18 11:29 AM) CHEM PANEL Most recent to 1 oldest [Reference Range]: Creatinine Lvl 0.73 mg/dL [0.50-1.40 mg/dL] (06/08/18 11:29 AM) eGFR 74 mL/min/1.73m2 1 *NA* (06/08/18 11:29 AM) BUN [7-22 mg/dL] 10 mg/dL (06/08/18 11:29 AM) B/C Ratio [6-25] 14 (06/08/18 11:29 AM) Glucose Lvl [70-99 101 mg/dL mg/dL] *HI* (06/08/18 11:29 AM) Total Protein 7.2 g/dL [6.4-8.4 g/dL] (06/08/18 11:29 AM) Albumin Lvl [3.5-5.0 3.7 g/dL g/dL] (06/08/18 11:29 AM) Globulin [2.7-4.2 3.5 g/dL g/dL] (06/08/18 11:29 AM) A/G Ratio [0.7-1.6] 1.1 (06/08/18 11:29 AM) Calcium Lvl 9.4 mg/dL [8.5-10.5 mg/dL] (06/08/18 11:29 AM) ALT [0-65 unit/L] 21 unit/L (06/08/18 11:29 AM) AST [0-37 unit/L] 20 unit/L (06/08/18 11:29 AM) Alk Phos [39-136 80 unit/L unit/L] (06/08/18 11:29 AM) Bili Total [0.2-1.3 0.7 mg/dL mg/dL] (06/08/18 11:29 AM) 1Result Comment: The eGFR is calculated using the [...] from the National Kid[employer] Disease Education Program ( NKDEP) which additionally recommends that when the eGFR is used in patients with extremes of body mass index for purposes of drug dosing, the eGFR should be mul tiplied by the estimated BMI. HEMATOLOGY Most recent to 1 oldest [Reference Range]: WBC [3.7-10.4 K/CMM] 6.9 K/CMM (06/08/18 11:29 AM) RBC [4.20-5.40 4.61 M/CMM M/CMM] (06/08/18 11:29 AM) Hgb [12.0-16.0 g/dL] 11.1 g/dL *LOW* (06/08/18 11:29 AM) Hct [36.0-48.0 %] 34.9 % *LOW* (06/08/18 11: AM) MCV [80.0-98.0 fL] 75.6 fL *LOW* (06/08/18 11:29 AM) MCH [27.0-31.0 pg] 24.1 pg *LOW* (06/08/18 11: AM) MCHC [32.0-36.0 31.9 g/dL g/dL] *LOW* (06/08/18 11:29 AM) RDW [11.5-14.5 %] 17.4 % *HI* (06/08/18 11:29 AM) MPV [7.4-10.4 fL] 8.8 fL (06/08/18 11:29 AM) Platelet [133-450 227 K/CMM K/CMM] (06/08/18 11:29 AM) Segs [45.0-75.0 %] 67.8 % (06/08/18 11:29 AM) Lymphocytes 21.5 % [20.0-40.0 %] (06/08/18 11:29 AM) Monocytes [2.0-12.0 8.3 % %] (06/08/18 11:29 AM) Eosinophils [0.0-4.0 1.4 % %] (06/08/18 11:29 AM) Basophils [0.0-1.0 1.0 % %] (06/08/18 11:29 AM) Segs-Bands # 4.7 K/CMM [1.5-8.1 K/CMM] (06/08/18 11:29 AM) Lymphocytes # 1.5 K/CMM [1.0-5.5 K/CMM] (06/08/18 11:29 AM) Monocytes # [0.0-0.8 0.6 K/CMM K/CMM] (06/08/18 11:29 AM) Eosinophils # 0.1 K/CMM [0.0-0.5 K/CMM] (06/08/18 11:29 AM) Basophils # [0.0-0.2 0.1 K/CMM K/CMM] (06/08/18 11:29 AM) Microcyte [None 1+ Seen] *ABN* (06/08/18 11:29 AM) Immunizations No data available for this section Procedures No data available for this section Social History Social History Type Response Smoking Status Never smoker; Ready to change: No; Concerns about tobacco use in household: No; Exposure to Tobacco Smoke None; Cigarette Smoking Last 365 Days No; Reg Smoking Cessation Counseling No entered on: 06/08/18 Assessment and Plan No data available for this section
== END 2018-08-23 14:15 | disposition other institution (70) ==
LOC: ER 14:02 → UNDOADMIN 17:38 → ERHOLD 17:38
DX: R42 Dizziness and giddiness (principal); R53.1 Weakness; I48.1 Persistent atrial fibrillation; Z66 Do not resuscitate; I35.0 Nonrheumatic aortic (valve) stenosis; I25.10 Atherosclerotic heart disease of native coronary artery without angina pectoris; I10 Essential (primary) hypertension; E78.5 Hyperlipidemia, unspecified; Z86.73 Personal history of transient ischemic attack (TIA), and cerebral infarction without residual deficits
CPT/HCPCS: 36415; 71045; 80053; 83735; 83880; 84100; 84443; 84484; 85025; 93005; 99285; J7050; 80061; 84436; 84479; 85610; 85730; J1630